=== PATIENT | female | born 1990 | race Caucasian/White ===

== ENCOUNTER 2017-07-25 21:16 | Emergency (ER) | payer MEDICAID ==
[~2017-07-25] VITALS: Ht 157.5 cm; Wt 54.0 kg
[2017-07-25 21:40] VITALS: Ht 157.5 cm; Wt 54.0 kg
--- NOTE | 2017-07-26 03:14 | ERD ---
ER Documentation Chief Complaint Date/Time DATE: 07/26/17 TIME: 03:06 Chief Complaint CP for 2 weeks HPI This is a 26-year-old female who presents the emergency department for history of intermittent 8 out of 10 burning chest pain which radiates to bilateral breasts. Patient states she attempted to treat her symptoms with Motrin but did not experience much relief. She states the pain is not associated with activity or laying down and happens spontaneously. She denies any shortness of breath, prolonged immobilization, calf swelling, recent surgery, fever, chills, cough, sore throat. She denies any cardiac history or sudden in her immediate family from cardiac history.She denies any breast mass or change in breast tissue. ROS All systems reviewed and are negative except as per history of present illness. Medications Home Meds Active Scripts Omeprazole* (Omeprazole*) 10 Mg Capsule.dr, 10 MG PO DAILY, #30 CAP Prov:JOSE SHETH PA-C 07/26/17 Famotidine* (Pepcid*) 20 Mg Tablet, 20 MG PO BID for 4 Days, TAB Prov:JOSE SHETH PA-C 07/26/17 Naproxen* (Naprosyn*) 500 Mg Tablet, 500 MG PO BID Y for PAIN AND/OR INFLAMMATION, #30 TAB Prov:JOSE SHETH PA-C 07/26/17 Allergies Allergies: Coded Allergies: No Known Allergy (Unverified , 07/26/17) PMhx/Soc Medical and Surgical Hx: pt denies Medical Hx, pt denies Surgical Hx Hx Alcohol Use: Yes (once a year) Hx Substance Use: No Hx Tobacco Use: No Smoking Status: Former smoker Physical Exam Vitals Vital Signs Date Time Temp Pulse Resp B/P Pulse Ox O2 Delivery O2 Flow Rate FiO2 07/26/17 04:20 98.3 68 16 124/78 100 Room Air 07/25/17 21:40 98.3 77 16 130/95 100 Physical Exam Const: Well-developed, well-nourished, no acute distress Head: Atraumatic Eyes: Normal Conjunctiva ENT: Normal External Ears, Nose and Mouth. Neck: Full range of motion..~ No meningismus. Resp: Pain was reproducible upon palpation of the bilateral costochondral joints.Clear to auscultation bilaterally Cardio: Regular rate and rhythm, no murmurs Abd: Soft, non tender, non distended. Normal bowel sounds Skin: No petechiae or rashes Back: No midline or flank tenderness Ext: No cyanosis, or edema Neur: Awake and alert Psych: Normal Mood and Affect Results 24 hrs Current Medications Medications (Trade) Dose Ordered Sig/Nelia Route PRN Reason Start Time Stop Time Status Last Admin Dose Admin Miscellaneous Medication (Gi Cocktail (2)) 40 ml ONCE ONCE PO 07/26/17 03:30 07/26/17 03:31 DC 07/26/17 03:16 Famotidine (Pepcid) 20 mg ONCE ONCE PO 07/26/17 03:30 07/26/17 03:31 DC 07/26/17 03:16 Ketorolac Tromethamine (Toradol) 30 mg ONCE STAT IM 07/26/17 03:56 07/26/17 03:57 DC 07/26/17 04:16 Procedures/MDM PROCEDURE: XR Chest. CLINICAL INDICATION: Chest pain. TECHNIQUE: Single frontal chest x-ray. COMPARISON: None. FINDINGS: The cardiomediastinal silhouette is unremarkable. There is no congestive heart failure.. No focal infiltrate is seen. There is no pleural effusion. There is no pneumothorax. The osseous structures are unremarkable. IMPRESSION: 1. No active disease. RPTAT: [facility]VK .Keven Gregorio MD, MD Date Time Electronically viewed and signed by .Keven Gregorio MD, MD on 07/26/2017 03:12 .K/ CC: JOSE SHETH PA-C This is an otherwise healthy 26-year-old female who presents the emergency department for complaints of intermittent burning chest pain 2 weeks. Patient denied any history of cardiac disease, or sudden in her immediate family from sudden heart attack. Heart score currently 0. She denies any recent illness, fever, chills. She denies recent surgery, prolonged immobilization, calf swelling, or shortness of breath. Patient meets PERC rule out criteria. She describes the pain as a burning sensation which radiates to her breasts. Her pain is reproducible upon palpation of the costochondral joint regions on exam. EKG: Rate/Rhythm: Normal Sinus Rhythm QRS, ST, T-waves: No changes consistent w/ acute ischemia Impression: No evidence of ischemia or arrhythmia Chest X-ray 1V Interpreted by me: Soft Tissue: No acute abnormalities Bones: No acute abnormalities Mediastinum/Cardiac Silhouette/Lungs: No acute abnormalities Vital signs reviewed. Patient afebrile, non-tachycardic, normotensive and non- hypoxic upon arrival. Physical exam otherwise unremarkable. Based on the patient's risk factors, and age I did not believe laboratory testing was indicated. She reported concern regarding possible breast cancer. I reassured her based on her symptoms that she has a very low risk for breast or cardiac etiology. History and physical exam consistent with likely costochondritis. Differential diagnosis includes but not limited to acid reflux, anxiety, acute OK, pulmonary embolism, pneumonia, bronchitis. Based on patient's history of present illness and physical examination the decision was made to discharge. The patient was re-evaluated after ED treatment and stabilizing measures, and symptoms have improved. There is no evidence of life threatening injuries or illnesses at this time. Patient received a GI cocktail, Pepcid and pain medicine while in the emergency department and reported improvement of symptoms. This time I believe patient is stable for outpatient management. On re-examination, patient resting in no distress, stable vital signs, reports feeling better and safe for discharge with outpatient follow up with PMD in 1-2 days. Patient given return precautions. Departure Diagnosis: Primary Impression: Chest pain Chest pain type: intercostal pain Qualified Code: R07.82 - Intercostal pain Additional Impression: Costochondritis JOSE SHETH PA-C Jul 26, 2017 03:14
[2017-07-26] MEDS ORDERED: FAMO-96 PO (03:20)
[2017-07-26] MEDS ORDERED: NAPR-260 PO (03:20)
[2017-07-26] MEDS ORDERED: OMEP10CA4 PO (03:20)
[2017-07-26] MEDS ORDERED: LIDOCAINE/MYLANTA 40 ML BTL PO ONE (03:30)
[2017-07-26] MEDS ORDERED: FAMOTIDINE 20 MG TAB PO ONE (03:30)
[2017-07-26] MEDS ORDERED: KETOROLAC 30 MG INJ IM STA (03:56)
[2017-07-26 04:20] VITALS: BP 124/78; PULSE 68; RESP 16; TEMP 98.3
== END 2017-07-26 04:21 | disposition home or self-care (01) ==
LOC: FTE 21:16
DX: R07.82 Intercostal pain (principal); M94.0 Chondrocostal junction syndrome [Tietze]; Z87.891 Personal history of nicotine dependence
CPT/HCPCS: 71010; 93005; 96372; J1885; Z7502; Z7610